=== PATIENT | male | born 2000 | race Caucasian/White ===

== ENCOUNTER 2022-02-26 11:59 | Inpatient (IN) | payer OTHER, SELFPAY ==
--- NOTE | 2022-02-27 00:30 | PM.IMHP ---
H&P: HPI History of Present Illness Date/Time: 02/27/22 00:30 Chief Complaint: Right hand pain Narrative: Patient is a 21-year-old male with past medical history of goldenhar syndrome, asthma, ADHD presents to the ED at [facility] with complaints of a cat bite on hand with worsening edema and swelling. Patient recently had a cat bite on right hand on 02/23/2022. The domestic house cat is up-to-date on immunizations. Went to Urgent Care on the , given dose of Rocephin and tetanus and placed on Augmentin. Over the course of next 2 days the redness and swelling and pain has worsened. He had a T-max of 104.3F leading him to go back to the ED. for patient's Goldenhar syndrome sees reconstruction surgery team at [facility] yearly, no recent issues. He does not take any medication for status more ADHD as well as they are very mild. In the ED: Patient had right hand CT scan which showed infiltrative changes along the radial aspect of the metacarpal region of the right hand 2nd metacarpal bone. Patient was given dose of Unasyn IV. CT scan did not show any signs of osteomyelitis or foreign object. With the findings plastic surgery from [facility] was notified would like to evaluate the hand for possible procedure and debridement. Patient transferred to [facility] for plastic surgery evaluation. Review of Systems Review of Systems: Constitutional: No Chills, No Night Sweats, No Fatigue, No Malaise. Endorses fever ENT/Mouth: No Hearing Changes, No Ear Pain, No Nasal Congestion, No Sinus Pain, No Hoarseness, No sore throat, No Rhinorrhea, No Swallowing Difficulty Eyes: No Eye Pain, No Redness, No Vision Changes Cardiovascular: No Chest Pain, No Palpitations, No Dyspnea on Exertion, No Orthopnea, No Claudication, No Edema Respiratory: No Cough, No Sputum, No Wheezing, No Shortness of Breath Gastrointestinal: No Nausea, No Vomiting, No Diarrhea, No Constipation, No Abdominal Pain, No Heartburn, No Hematochezia, No Melena Genitourinary: No Dysuria, No Urinary Frequency, No Hematuria, No Urinary Incontinence, No Urgency Musculoskeletal: Endorses right hand pain swelling, redness Skin: No Skin Lesions, No Pruritis, No Hair Changes Neuro: No Weakness, No Numbness, No Paresthesias, No Loss of Consciousness, No Syncope, No Dizziness, No Headache Psych: No Anxiety/Panic, No Depression, No Insomnia Heme: No Bruising, No Bleeding Lymph: No Adenopathy Endocrine: No Polyuria, No Polydipsia, No Temperature Intolerance PMFSH Past Medical History Medical History (Updated 02/27/22 @ 00:37 by Dwaine Gray DO) ADHD Asthma Goldenhar syndrome Surgical History Surgical History (Updated 02/27/22 @ 00:37 by Dwaine Gray DO) History of ear surgery History of mandibular surgery Family History Family History (Updated 02/27/22 @ 00:38 by Dwaine Gray DO) Mother Diabetes mellitus Social History Social History (Updated 02/27/22 @ 00:38 by Dwaine Gray DO) Smoking status: Never smoker Alcohol intake: never Substance use: former Lack of Transportation: No Lack of Food: Never True Current Housing: I Have Housing Concerned About Future Housing: No Difficulty Paying Gas/Electric Bills: No Difficulty Paying for Meds: No Currently Unemployed: No Education: High School Diploma/GED Difficulty w/ Childcare or Family Care: No Spiritual care concerns: No Exam Narrative: - GENERAL: Pleasant young male in no acute distress. Well-nourished. - EYES: EOMI. Anicteric. - HENT: Moist mucous membranes. Right ear surgery history, some scarring - LUNGS: Clear to auscultation bilaterally, no wheezing, rhonchi, or rales. - CARDIOVASCULAR: Regular rate and rhythm. No murmur. No JVD. - ABDOMEN: Soft, non-tender and non-distended. No palpable masses. - EXTREMITIES: Right hand difficult to make fist, erythema/swelling along the 2nd MCP joint, no purulence seen. - NEUROLOG
[2022-02-27 00:32] VITALS: BMI 19.6
[2022-02-27 00:33] VITALS: BP 134/82; PULSE 96; RESP 18; TEMP 37.1; O2SAT 96
--- NOTE | 2022-02-27 00:37 | ADMGEN ---
This patient, Devyn Montague, was admitted to Medical Room 258-. Patient/family oriented to hospital policies and general routines including ID bracelet, bed and alarms, visiting hours, pain management, procedures, bathroom and other care routines, personal items, smoking policy, room service/diet, and visiting hours. Information on how to activate the Rapid Response Team has been discussed. Patient/Family are encouraged to report perceived risks to care and to ask questions if they do not understand what they are told or what they should do.
[2022-02-27] MEDS: AMPICILLIN SULB 3 GM/NS 100 ML 3 GM/100 ML VIAL IVPB ×4 (01:29→19:58)
[2022-02-27] MEDS: MORPHINE SULFATE (*CRX) 2 MG/ML INJ IV PUSH (01:29)
[2022-02-27] MEDS: SODIUM CHLORIDE 0.9% IV 1,000 ML 125 ML IV CONT ×3 (01:29→20:01)
[2022-02-27 04:32] VITALS: BP 123/64; PULSE 94; RESP 18; TEMP 37.4; O2SAT 98
[2022-02-27] MEDS: HYDROcodone/acetaminophen (*CRX) 5-325 MG TABLET 1 TAB PO (04:42)
[2022-02-27 05:51] LABS: Mean Corpuscular HGB Conc 33.3 g/dl (32-36); Mean Corpuscular Hemoglobin 29.5 pg (26-34); Mean Corpuscular Volume 88.5 fl (80-100); Mean Platelet Volume 10.5 fl (7.4-10.4); Platelet Count Result 175 k/mm3 (150-375); Red Blood Count 4.07 M/mm3 (4.6-6.20); White Blood Count 4.4 K/mm3 (4.5-10.0)
[2022-02-27 05:57] LABS: INR 1.3; Prothrombin Time 15.3 Seconds (11.1-14.7)
[2022-02-27 05:58] LABS: Alanine Aminotransferase 18 U/L (6-50); Albumin Level 3.8 g/dL (3.5-5.1); Alkaline Phosphatase 81 U/L (38-126); Anion Gap 10 mmol/L (8-16); Aspartate Amino Transferase 26 U/L (17-59); Bilirubin,Total 0.4 mg/dL (0.2-1.3); Blood Urea Nitrogen 8 mg/dL (9-20); Calcium 8.7 mg/dL (8.4-10.2); Carbon Dioxide 23 mmol/L (22-30); Chloride 105 mmol/L (98-107); Estimated CRCL calculation 116 ml/min; Estimated Glomerular Filt Rate > 60; Glucose 91 mg/dL (65-110); Magnesium 1.9 mg/dL (1.6-2.3); Potassium 3.5 mmol/L (3.4-5.0); Sodium 138 mmol/L (137-145)
[2022-02-27 06:03] LABS: Lactic Acid Reflex 0.6 mmol/L (0.7-2.0)
[2022-02-27 07:19] LABS: Band Neutrophils Percent 6 % (0-6); Eosinophils Absolute Manual 0.04 K/mm3 (0.02-0.5); Eosinophils Percent Manual 1 % (0-4); Lymphocytes Absolute Manual 1.05 K/mm3 (1.1-4.5); Monocytes Absolute Manual 0.17 K/mm3 (0.1-0.90); Monocytes Percent Manual 4 % (3-9); Neutrophils Absolute Manual 3.12 K/mm3 (1.3-6.7); Neutrophils Percent Manual 65 % (46-73); Total Cells Counted 100
[2022-02-27 07:20] LABS: Anisocytosis 1+ (NORMAL); Atypical Lymphocytes Present; Platelet Estimate Adequate (Adequate); Schistocytes None Seen (NORMAL)
--- NOTE | 2022-02-27 10:15 | WPDCN ---
Assessment and Plan Assessment and plan (1) Pasteurella cellulitis due to cat bite: Code(s): L03.90 - Cellulitis, unspecified; A28.0 - Pasteurellosis; W55.01XA - Bitten by cat, initial encounter Status: Acute Plan Cat bite puncture wounds to left 2nd mPJ area with cellulitis. Doubt septic joint at present. No apparent abscess at this time. Pt seems to be responding to antibiotic therapy. Would continue Unasyn. Will elevate extremity above heart level. Regular diet. I will follow daily. HPI Data of Consult Date/Time: 02/27/22 10:15 Requesting Physician: Rubio Gray DO Primary Care Provider: PHYSICIAN NOT ON STAFF Consult Narrative Reason for consult: Infected cat bite to right hand. Narrative: Devyn Montague is a 21 year old male transferred from [facility] where he was seen twice within two days after being bitten on the right 2nd MPJ area by his 8 mo cat. Cat is vaccinated. Pt received Tdap and IV and oral antibiotics but had worsening of infectious signs. Transfer was Okayed since there was no one at the facility to accept care. Injury occurred ~7:30 pm. Medical care was instituted about 19 hrs later with parenteral antibiotics and Augmentin. Pt returned to ED after temp climbed to ~104 and he experienced nausea while treating pain with Tylenol and ibuprofen. Bite area has continued to swell and become more red and painful. CT revealed local edema only. WBC 4.4 Hb 12! Review of Systems Review of Systems: Alert and informative. Says hand is a litter less swollen and red than yesterday. Has no other constitutional complaints. Has Goldenhar Syndrome involving craniofacial structures but no other systems are involved. [facility] Past Medical History Medical History ADHD Asthma Goldenhar syndrome Surgical History Surgical History History of ear surgery History of mandibular surgery Family History Family History Mother Diabetes mellitus Social History Social History Smoking status: Never smoker Alcohol intake: never Substance use: former Lack of Transportation: No Lack of Food: Never True Current Housing: I Have Housing Concerned About Future Housing: No Difficulty Paying Gas/Electric Bills: No Difficulty Paying for Meds: No Currently Unemployed: No Education: High School Diploma/GED Difficulty w/ Childcare or Family Care: No Spiritual care concerns: No Meds Home Medications and Allergies Home Medications Medication Instructions Recorded Confirmed Type amoxicillin 875 mg-potassium tablet 02/27/22 History clavulanate 125 mg tablet Vital Signs Vital Signs - 24 hr 02/27/22 00:33 02/27/22 00:48 02/27/22 04:32 Temperature 98.7 F 99.4 F Pulse Rate 96 94 Respiratory Rate 18 18 Blood Pressure 134/82 123/64 Pulse Oximetry 96 98 Oxygen Delivery Room Air Exam Narrative: Pt is very cooperative to exam. 5 small puncture sites palmar and dorsal to the right 2nd MP joint, 3 palmar and 2 dorsal. Edema and erythema noted dorsally. No erythema or swelling on palmar side. Tolerates some active flexion and also direct palpation over the flexor tendons without tenderness. Has tenderness to passive extension of the MPJ. The dorsal punctures lie proximal to the joint. Greatest tenderness is dorsal radial at the head of the 2nd metacarpal. Const: General: cooperative, healthy appearing and alert Results Labs CBC & Chem 7: 02/27/22 05:02 02/27/22 05:02 Labs: Short CBC 02/27/22 Range/Units 05:02 WBC 4.4 L (4.5-10.0) K/mm3 Hgb 12.0 L (14.0-18.0) g/dL Hct 36.0 L (42.0-52.0) % Plt Count 175 (150-375) k/mm3 [facility] 02/27/22 05:0
--- NOTE | 2022-02-27 10:57 | PM.IMPN ---
Progress Note: A&P Assessment and Plan (1) Pasteurella cellulitis due to cat bite: Code(s): L03.90 - Cellulitis, unspecified; A28.0 - Pasteurellosis; W55.01XA - Bitten by cat, initial encounter Status: Acute Plan # cellulitis right hand from cat bite -cat bite from domestic house cat which is up-to-date on immunizations and rabies shot. Patient already had tetanus vaccine -antibiotics: Continue Unasyn, was on Augmentin at home with worsening symptoms -IV fluids: Normal saline 100 cc an hour -consulting plastic surgery to evaluate, make NPO for possible procedure however CT scan did not find any abscess or osteomyelitis # other chronic conditions -Goldenhar syndrome: Followed at [facility], no medications, stable -mild intermittent asthma: No recent issues, previously albuterol -history of ADHD: not on any medications currently Diet: NPO for possible procedure DVT prophylaxis: SCDs, ambulatory Code status: Full code Disposition: Observation: Likely home in 1-2 days Subjective Date/time seen: 02/27/22 10:57 cellulitis improving Exam Narrative: - GENERAL: Pleasant young male in no acute distress. Well-nourished. - EYES: EOMI. Anicteric. - HENT: Moist mucous membranes. Right ear surgery history, some scarring - LUNGS: Clear to auscultation bilaterally, no wheezing, rhonchi, or rales. - CARDIOVASCULAR: Regular rate and rhythm. No murmur. No JVD. - ABDOMEN: Soft, non-tender and non-distended. No palpable masses. - EXTREMITIES: Right hand difficult to make fist, erythema/swelling along the 2nd MCP joint, no purulence seen. - NEUROLOGIC: No focal neurological deficits. CN II-XII grossly intact. - PSYCHIATRIC: Awake, Alert and oriented x 3. Appropriate mood and affect. - SKIN: No tracking/streaking of lymph nodes, - LYMPH: No cervical lymphadenopathy. Objective Data Vital Signs Vital Signs: Vital Signs - 24 hr 02/27/22 00:33 02/27/22 00:48 02/27/22 04:32 Temperature 98.7 F 99.4 F Pulse Rate 96 94 Respiratory Rate 18 18 Blood Pressure 134/82 123/64 Pulse Oximetry 96 98 Oxygen Delivery Room Air Intake/Output Intake/Output: Intake & Output 02/24/22 02/25/22 02/26/2202/27/22 23:59 23:59 23:59 23:59 Intake Total 100 Balance 100 Meds/Results Medications: Active Medications Generic Name Dose Route Start Last Admin Trade Name Sixto PRN Reason Stop Dose Admin Acetaminophen 650 mg 02/27/22 00:28 Acetaminophen 325 Mg Tablet PO Q4H PRN Mild Pain (1-3) or Fever Hydrocodone Bitart/Acetaminophen 1 tab 02/27/22 00:28 02/27/22 04:42 Hydrocodone/Acetaminophen (*Crx) 5-325 Mg Tablet PO 1 tab Q4H PRN Administration Moderate Pain (4-6) Sodium Chloride 1,000 mls @ 125 mls/hr 02/27/22 00:30 02/27/22 01:29 Normal Saline Iv IV CONT 125 mls/hr .Q8H DESIREE Administration Ampicillin Sodium/Sulbactam Sodium 3 gm in 100 mls @ 200 mls/hr 02/27/22 08:00 02/27/22 07:25 Unasyn 3 Gm/Ns 100 Ml IVPB Infused Q6H DESIREE Infusion Morphine Sulfate 2 mg 02/27/22 00:28 02/27/22 01:29 Morphine Sulfate (*Crx) 2 Mg/Ml Inj IV PUSH 2 mg Q4H PRN Administration Pain Rated 7-10 Ondansetron HCl 4 mg 02/27/22 00:28 Ondansetron Inj 4 Mg/2 Ml Vial IV PUSH Q6H PRN Nausea And Vomiting Labs Labs: Laboratory Results - last 24 hr 02/27/22 02/27/22 02/27/22 05:02 05:02 05:02 WBC 4.4 L RBC 4.07 L Hgb 12.0 L Hct 36.0 L MCV 88.5 MCH 29.5 MCHC 33.3 RDW 13.0 Plt Count 175 MPV 10.5 H Immature Gran % (Auto) Not Reportable Neut % (Auto) Not Reportable Lymph % (Auto) Not Reportable Door % (Auto) Not Reportable Eos % (Auto) Not Reportable Baso % (Auto) Not Reportable Lymph # (Auto) Not Reportable Door # (Auto) Not Reportable Eos # (Auto) Not Reportable Baso # (Auto) Not Reportable Abs Immat Gran (auto) Not Reportable Absolute Neuts (auto) Not Reportable Absolute N
[2022-02-27] MEDS: ACETAMINOPHEN 325 MG TABLET 650 MG PO ×2 (11:40→19:58)
[2022-02-27 15:44] VITALS: BP 113/69; PULSE 84; RESP 18; TEMP 36.7; O2SAT 99
[2022-02-27 19:54] VITALS: BP 122/76; PULSE 68; RESP 17; TEMP 36.4; O2SAT 100
[2022-02-28] MEDS: AMPICILLIN SULB 3 GM/NS 100 ML 3 GM/100 ML VIAL IVPB ×4 (01:42→20:51)
[2022-02-28 03:44] VITALS: BP 102/58; PULSE 98; RESP 17; TEMP 36.7; O2SAT 100
[2022-02-28] MEDS: HYDROcodone/acetaminophen (*CRX) 5-325 MG TABLET 1 TAB PO (03:52)
[2022-02-28] MEDS: ACETAMINOPHEN 325 MG TABLET 650 MG PO (04:56)
--- NOTE | 2022-02-28 08:22 | WPDPN ---
Progress Note: A&P Assessment and Plan (1) Pasteurella cellulitis due to cat bite: Code(s): L03.90 - Cellulitis, unspecified; A28.0 - Pasteurellosis; W55.01XA - Bitten by cat, initial encounter Status: Acute Assessment and Plan: Improving cellulitis, affects extensor tendon and joint capsule at MPJ. No sign of abscess or septic arthritis. Plan Recommend to plan discharge for tomorrow. Continue on Augmentin. F/U with Dr Ren in 1 week. Continue off work. I will try to see him on Tuesday, early or at noon. Placed a call to his father and left a message. Time Spent With Patient Time with patient: less than 15 minutes Subjective Date/time seen: 02/28/22 08:22 Interval history: Cellulitis of right hand due to cat bite 3 days ago. Review of Systems Review of Systems: Able to actively move right wrist through full normal range without pulling sensation. All systems reviewed & are unremarkable except as noted in HPI and below Integumentary/Breasts: Skin/Breast: Reports erythema and Reports wounds Exam Narrative: Light pink erythema of dorsal right hand. No Calor. Tender to pressure at dorsal radial MPJ area in line with the bite tracks. Not tender to joint compression or to flexor tendon pressure. Limited AROM, but better than yesterday. Skin is smooth and dry. Objective Data Vital Signs Vital Signs: Vital Signs - 24 hr 02/27/22 15:44 02/27/22 19:54 02/27/22 20:00 Temperature 98.1 F 97.5 F L Pulse Rate 84 68 Respiratory Rate 18 17 Blood Pressure 113/69 122/76 Pulse Oximetry 99 100 Oxygen Delivery Room Air 02/28/22 03:44 Temperature 98.1 F Pulse Rate 98 Respiratory Rate 17 Blood Pressure 102/58 L Pulse Oximetry 100 Oxygen Delivery Intake/Output Intake/Output: Intake & Output 02/25/22 02/26/22 02/27/22 02/28/22 23:59 23:59 23:59 23:59 Intake Total 2300 600 Balance 2300 600 Meds/Results Medications: Active Medications Generic Name Dose Route Start Last Admin Trade Name Freq PRN Reason Stop Dose Admin Acetaminophen 650 mg 02/27/22 00:28 02/28/22 04:56 Acetaminophen 325 Mg Tablet PO 650 mg Q4H PRN Administration Mild Pain (1-3) or Fever Hydrocodone Bitart/Acetaminophen 1 tab 02/27/22 00:28 02/28/22 03:52 Hydrocodone/Acetaminophen (*Crx) 5-325 Mg Tablet PO 1 tab Q4H PRN Administration Moderate Pain (4-6) Sodium Chloride 1,000 mls @ 125 mls/hr 02/27/22 00:30 02/27/22 20:01 Normal Saline Iv IV CONT 125 mls/hr .Q8H DESIREE Administration Ampicillin Sodium/Sulbactam Sodium 3 gm in 100 mls @ 200 mls/hr 02/27/22 08:00 02/28/22 02:12 Unasyn 3 Gm/Ns 100 Ml IVPB Infused Q6H DESIREE Infusion Morphine Sulfate 2 mg 02/27/22 00:28 02/27/22 01:29 Morphine Sulfate (*Crx) 2 Mg/Ml Inj IV PUSH 2 mg Q4H PRN Administration Pain Rated 7-10 Non-Formulary Medication 20 applic 02/28/22 08:30 Heating Pad EXTERNAL 03/30/22 08:29 PER HOUR DESIREE Ondansetron HCl 4 mg 02/27/22 00:28 Ondansetron Inj 4 Mg/2 Ml Vial IV PUSH Q6H PRN Nausea And Vomiting
[2022-02-28] MEDS: SODIUM CHLORIDE 0.9% IV 1,000 ML 125 ML IV CONT ×2 (09:33→20:51)
--- NOTE | 2022-02-28 10:26 | PM.IMPN ---
Progress Note: A&P Assessment and Plan (1) Pasteurella cellulitis due to cat bite: Code(s): L03.90 - Cellulitis, unspecified; A28.0 - Pasteurellosis; W55.01XA - Bitten by cat, initial encounter Status: Acute Plan # cellulitis right hand from cat bite - continue Unasyn and will add vancomycin. - Appears to have some improvement but very slow # other chronic conditions -Goldenhar syndrome: Followed at [facility], no medications, stable -mild intermittent asthma: No recent issues, previously albuterol -history of ADHD: not on any medications currently Subjective Date/time seen: 02/28/22 10:26 no new complaints Exam Narrative: - GENERAL: Pleasant young male in no acute distress. Well-nourished. - EYES: EOMI. Anicteric. - HENT: Moist mucous membranes. Right ear surgery history, some scarring - LUNGS: Clear to auscultation bilaterally, no wheezing, rhonchi, or rales. - CARDIOVASCULAR: Regular rate and rhythm. No murmur. No JVD. - ABDOMEN: Soft, non-tender and non-distended. No palpable masses. - EXTREMITIES: Right hand difficult to make fist, erythema/swelling along the 2nd MCP joint, no purulence seen. - NEUROLOGIC: No focal neurological deficits. CN II-XII grossly intact. - PSYCHIATRIC: Awake, Alert and oriented x 3. Appropriate mood and affect. - SKIN: No tracking/streaking of lymph nodes, - LYMPH: No cervical lymphadenopathy. Objective Data Vital Signs Vital Signs: Vital Signs - 24 hr 02/27/22 15:44 02/27/22 19:54 02/27/22 20:00 Temperature 98.1 F 97.5 F L Pulse Rate 84 68 Respiratory Rate 18 17 Blood Pressure 113/69 122/76 Pulse Oximetry 99 100 Oxygen Delivery Room Air 02/28/22 03:44 Temperature 98.1 F Pulse Rate 98 Respiratory Rate 17 Blood Pressure 102/58 L Pulse Oximetry 100 Oxygen Delivery Intake/Output Intake/Output: Intake & Output 02/25/22 02/26/22 02/27/22 02/28/22 23:59 23:59 23:59 23:59 Intake Total 2300 1600 Balance 2300 1600 Meds/Results Medications: Active Medications Generic Name Dose Route Start Last Admin Trade Name Freq PRN Reason Stop Dose Admin Acetaminophen 650 mg 02/27/22 00:28 02/28/22 04:56 Acetaminophen 325 Mg Tablet PO 650 mg Q4H PRN Administration Mild Pain (1-3) or Fever Hydrocodone Bitart/Acetaminophen 1 tab 02/27/22 00:28 02/28/22 03:52 Hydrocodone/Acetaminophen (*Crx) 5-325 Mg Tablet PO 1 tab Q4H PRN Administration Moderate Pain (4-6) Albuterol puff 02/28/22 10:26 Albuterol Sulfate (*Sp) Aerosol 1 Puff INHALATION PRN PRN Shortness Of Breath Or Wheezing Sodium Chloride 1,000 mls @ 125 mls/hr 02/27/22 00:30 02/28/22 09:33 Normal Saline Iv IV CONT 125 mls/hr .Q8H DESIREE Administration Ampicillin Sodium/Sulbactam Sodium 3 gm in 100 mls @ 200 mls/hr 02/27/22 08:00 02/28/22 09:31 Unasyn 3 Gm/Ns 100 Ml IVPB 125 mls/hr Q6H DESIREE Administration Miscellaneous Information 1 each 02/28/22 08:35 Haeting Pad Is Not A Pharmacy Item. Can We D/C? XX 03/30/22 08:34 CLARIFY DESIREE Morphine Sulfate 2 mg 02/27/22 00:28 02/27/22 01:29 Morphine Sulfate (*Crx) 2 Mg/Ml Inj IV PUSH 2 mg Q4H PRN Administration Pain Rated 7-10 Non-Formulary Medication 20 applic 02/28/22 08:30 Heating Pad EXTERNAL 03/30/22 08:29 PER HOUR DESIREE Ondansetron HCl 4 mg 02/27/22 00:28 Ondansetron Inj 4 Mg/2 Ml Vial IV PUSH Q6H PRN Nausea And Vomiting Vancomycin HCl 1 each 02/28/22 10:30 Vancomycin Pharmacist To Dose IVPB PER PROTOCOL [facility]
[2022-02-28 14:54] VITALS: BP 110/60; PULSE 73; RESP 16; TEMP 36.9; O2SAT 98
[2022-02-28 21:29] VITALS: BP 120/72; PULSE 96; RESP 16; TEMP 36.6; O2SAT 100
[2022-03-01] MEDS: AMPICILLIN SULB 3 GM/NS 100 ML 3 GM/100 ML VIAL IVPB ×2 (02:29→07:48)
[2022-03-01 05:38] LABS: Estimated CRCL calculation 151 ml/min; Estimated Glomerular Filt Rate > 60
--- NOTE | 2022-03-01 08:28 | P.PN_ITS ---
Progress Note: A&P Assessment and Plan (1) Pasteurella cellulitis due to cat bite: Code(s): L03.90 - Cellulitis, unspecified; A28.0 - Pasteurellosis; W55.01XA - Bitten by cat, initial encounter Status: Acute Assessment and Plan: Soreness and stiffness but cellulitis controlled. Plan Discharge home. [facility] at patient's request. F/U with Dr Ren next Tuesday. Suggest Augmentin for 10 days. Time Spent With Patient Time with patient: less than 15 minutes Subjective Date/time seen: 03/01/22 08:28 Interval history: Reports locally tender at [facility]. Does not impede sleep. Would like to be able to return to [facility] tomorrow. Exam Narrative: No erythema. Minimal edema. Improved A/PROM Blood cx No growth. Objective Data Vital Signs Vital Signs: Vital Signs - 24 hr 02/28/22 14:54 02/28/22 21:29 02/28/22 20:00 Temperature 98.4 F 97.8 F Pulse Rate 73 96 Respiratory Rate 16 16 Blood Pressure 110/60 120/72 Pulse Oximetry 98 100 Oxygen Delivery Room Air 03/01/22 07:52 Temperature Pulse Rate Respiratory Rate Blood Pressure Pulse Oximetry Oxygen Delivery Room Air Intake/Output Intake/Output: Intake & Output 02/26/22 02/27/22 02/28/22 03/01/22 23:59 23:59 23:59 23:59 Intake Total 2300 3150 550 Balance 2300 3150 550 Meds/Results Medications: Active Medications Generic Name Dose Route Start Last Admin Trade Name Freq PRN Reason Stop Dose Admin Acetaminophen 650 mg 02/27/22 00:28 02/28/22 04:56 Acetaminophen 325 Mg Tablet PO 650 mg Q4H PRN Administration Mild Pain (1-3) or Fever Hydrocodone Bitart/Acetaminophen 1 tab 02/27/22 00:28 02/28/22 03:52 Hydrocodone/Acetaminophen (*Crx) 5-325 Mg Tablet PO 1 tab Q4H PRN Administration Moderate Pain (4-6) Albuterol 1 puff 02/28/22 10:26 Albuterol Sulfate (*Sp) Aerosol 1 Puff INHALATION PRN PRN Shortness Of Breath Or Wheezing Sodium Chloride 1,000 mls @ 125 mls/hr 02/27/22 00:30 02/28/22 20:51 Normal Saline Iv IV CONT 125 mls/hr .Q8H DESIREE Administration Ampicillin Sodium/Sulbactam Sodium 3 gm in 100 mls @ 200 mls/hr 02/27/22 08:00 03/01/22 07:48 Unasyn 3 Gm/Ns 100 Ml IVPB 100 mls/hr Q6H DESIREE Administration Vancomycin HCl 1,000 mg in 250 mls @ 250 mls/hr 02/28/22 12:00 03/01/22 02:11 Vancomycin 1,000 Mg/D5w 250 Ml IVPB Infused Q12H DESIREE Infusion Morphine Sulfate 2 mg 02/27/22 00:28 02/27/22 01:29 Morphine Sulfate (*Crx) 2 Mg/Ml Inj IV PUSH 2 mg Q4H PRN Administration Pain Rated 7-10 Ondansetron HCl 4 mg 02/27/22 00:28 Ondansetron Inj 4 Mg/2 Ml Vial IV PUSH Q6H PRN Nausea And Vomiting Labs Labs: Laboratory Results - last 24 hr 03/01/22 05:03 Creatinine 0.60 L Estim Creat Clear Calc 151 Estimated GFR > 60
--- NOTE | 2022-03-01 09:36 | P.DS_ITS ---
DS: Admitting Diagnosis Discharge Date March 01, 2022 Admitting Diagnosis cellulitis DS: Discharge Diagnosis Discharge Diagnosis (1) Pasteurella cellulitis due to cat bite: Code(s): L03.90 - Cellulitis, unspecified; A28.0 - Pasteurellosis; W55.01XA - Bitten by cat, initial encounter Status: Acute DS: Summary Hospital Course Hospital Course: patient is 21-year-old male admitted for cellulitis of the hand. patient will need to follow up Dr. Ren. No procedures performed. Discharged on antibiotics. Time Spent with Patient Time attestation: Total time spent providing and/or coordinating discharge services: Exam Narrative: - GENERAL: Pleasant young male in no acute distress. Well- nourished. - EYES: EOMI. Anicteric. - HENT: Moist mucous membranes. Right ear surgery history, some scarring - LUNGS: Clear to auscultation bilaterally, no wheezing, rhonchi, or rales. - CARDIOVASCULAR: Regular rate and rhythm. No murmur. No JVD. - ABDOMEN: Soft, non-tender and non-distended. No palpable masses. - EXTREMITIES: Right hand difficult to make fist, erythema/swelling along the 2nd MCP joint, no purulence seen. - NEUROLOGIC: No focal neurological deficits. CN II-XII grossly intact. - PSYCHIATRIC: Awake, Alert and oriented x 3. Appropriate mood and affect. - SKIN: No tracking/streaking of lymph nodes, - LYMPH: No cervical lymphadenopathy. DS: Data Data Completed and Pending Labs on day of discharge: Labs from last 24 hours 03/01/22 05:03 Creatinine 0.60 L Estim Creat Clear Calc 151 Estimated GFR > 60 Preliminary micro results at discharge 02/27/22 05:02 Blood Culture - Preliminary Blood 02/27/22 05:02 Blood Culture - Preliminary Blood Discharge Plan Discharge Attending physician on discharge: Silvestre Jean Consulting providers: Stew Stein ; Fan Ren Discharging Clinician: Silvestre Jean Patient Disposition: Home, Self-Care Activity: no preference Diet: as tolerated Patient Instructions: Antibiotic Form Stand Alone Forms: General Discharge Information Follow-up/Referrals: Fan Ren MD [Physician] - Discharge Medications: New amoxicillin-pot clavulanate 875-125 mg tablet 1 tablet PO Q12H 10 Days Qty: 20 0RF Continued albuterol sulfate 90 mcg/actuation HFA aerosol inhaler 90 mcg INHALATION PRN PRN (Reason: Shortness Of Breath Or Wheezing) Date of admission: 02/28/22 09:44 Primary Care Provider: PHYSICIAN NOT ON STAFF,NONSTAFF Admitting Provider: Dwaine Gray Attending physician on admission: Dwaine Gray Condition: Stable
[2022-03-01 10:10] VITALS: BP 121/82; PULSE 77; RESP 12; TEMP 36.7; O2SAT 100
== END 2022-03-01 11:36 | disposition home or self-care (01) | DRG 603 ==
PROVIDERS: Admitting Provider Student in an Organized Health Care Education/Training Program; Visit Provider Chiropractor
DX: L03.113 Cellulitis of right upper limb (principal); A28.0 Pasteurellosis; Q87.0 Congenital malformation syndromes predominantly affecting facial appearance; J45.20 Mild intermittent asthma, uncomplicated; Z79.51 Long term (current) use of inhaled steroids; W55.01XA Bitten by cat, initial encounter
CPT/HCPCS: 36415; 80053; 82565; 83605; 83735; 85025; 85610; 87040; 96361; 96365; 96366; 96374; 96375; 96376; A9270; G0378; G0379; J0295; J2270; J3370; J7030